=== PATIENT | male | born 1990 | race Caucasian/White ===

== ENCOUNTER 2024-11-21 17:32 | Emergency (ER) | payer MEDICAID ==
[~2024-11-21] VITALS: Ht 170.2 cm; Wt 66.0 kg
[2024-11-21 17:34] VITALS: O2SAT 99
[2024-11-21 18:05] VITALS: TEMP 36.7
[2024-11-21 19:02] LABS: BASOPHILS % 0.5 % (0.0-2.0); EOSINOPHILS % 3.2 % (0.0-5.0); HEMATOCRIT. 44.7 % (42.0-52.0); HEMOGLOBIN. 14.6 g/dL (14.0-18.0); LYMPHOCYTES % 25.1 % (20.0-50.0); MEAN PLATELET VOLUME 7.5 fl (7.4-10.4); MONOCYTES % 10.0 % (2.0-8.0); NEUTROPHILS % 61.2 % (40.0-76.0); PLATELET 196 x1000/uL (130-400); RED BLOOD CELL COUNT 5.33 mill/uL (4.7-6.1); RED CELL DISTRIBUTION WIDTH 14.5 % (11.6-14.6)
[2024-11-21 19:28] LABS: CREATININE 1.0 mg/dL (0.6-1.3); UREA NITROGEN BLOOD 15 mg/dL (9-23)
[2024-11-21 19:29] LABS: ETHANOL BLOOD < 10 mg/dL (<10)
[2024-11-21] MEDS ORDERED: NALO4SPR BOTHNSTRLS (20:15)
[2024-11-21 21:24] VITALS: BP 136/87; PULSE 87; RESP 12; O2SAT 97
== END 2024-11-21 21:35 | disposition home or self-care (01) ==
LOC: ER 17:32
DX: T50.901A Poisoning by unspecified drugs, medicaments and biological substances, accidental (unintentional), initial encounter (principal); Z79.899 Other long term (current) drug therapy; Y92.89 Other specified places as the place of occurrence of the external cause
CPT/HCPCS: 80048; 80320; 85025; 36415; 93005; 99284; Z7610 ×2; A4606; G0480